=== PATIENT | male | born 1990 | race Caucasian/White ===

== ENCOUNTER 2018-03-19 15:41 | Emergency (ER) | payer SELFPAY ==
[~2018-03-19] VITALS: Ht 162.6 cm; Wt 49.2 kg
[2018-03-19 17:25] VITALS: BP 99/57
== END 2018-03-19 18:08 | disposition left against medical advice (07) ==
LOC: ER 15:41
DX: Z48.01 Encounter for change or removal of surgical wound dressing (principal); Z53.21 Procedure and treatment not carried out due to patient leaving prior to being seen by health care provider